=== PATIENT | female | born 1940 | race Two or more races ===

== ENCOUNTER 2022-05-09 17:57 | Inpatient (IN) | payer OTHER ==
[~2022-05-09] VITALS: Ht 121.9 cm; Wt 45.4 kg
[2022-05-09] MEDS ORDERED: OSTERA TABLET1 EACH (18:05)
[2022-05-09] MEDS ORDERED: SIMVASTATIN5 MG (18:05)
[2022-05-09] MEDS ORDERED: LEXAPRO20 MG (18:05)
== END 2022-05-20 19:37 | disposition home or self-care (01) | DRG 689 ==
LOC: ER 17:57 → SEC-K 05-10 14:21 → MEDJ 05-10 16:07
PROVIDERS: ADMIT Internal Medicine; ATTEND Internal Medicine
PROC: XW033E5 Introduction of Remdesivir Anti-infective into Peripheral Vein, Percutaneous Approach, New Technology Group 5 (ICD-10-PCS; 2022-05-11)
PROC: B54DZZZ Ultrasonography of Bilateral Lower Extremity Veins (ICD-10-PCS; 2022-05-11)
PROC: 0W993ZZ Drainage of Right Pleural Cavity, Percutaneous Approach (ICD-10-PCS; principal; 2022-05-17)
PROC: 02HV33Z Insertion of Infusion Device into Superior Vena Cava, Percutaneous Approach (ICD-10-PCS; 2022-05-17)
DX: N39.0 Urinary tract infection, site not specified (principal); J12.82 Pneumonia due to coronavirus disease 2019; U07.1 COVID-19; C79.01 Secondary malignant neoplasm of right kidney and renal pelvis; C78.7 Secondary malignant neoplasm of liver and intrahepatic bile duct; C78.00 Secondary malignant neoplasm of unspecified lung; C78.6 Secondary malignant neoplasm of retroperitoneum and peritoneum; J91.0 Malignant pleural effusion; D63.0 Anemia in neoplastic disease; E86.0 Dehydration; J44.9 Chronic obstructive pulmonary disease, unspecified; E87.6 Hypokalemia; E78.5 Hyperlipidemia, unspecified; F17.200 Nicotine dependence, unspecified, uncomplicated; Y95 Nosocomial condition; C80.1 Malignant (primary) neoplasm, unspecified